=== PATIENT | male | born 1960 | race Caucasian/White ===

== ENCOUNTER → 2018-08-02 | Outpatient (CLI) | payer OTHER ==
[~2018-08-02] MED LIST: ADVAIR 250-501 EACH INH; ALBUTEROL2.5 MG/0.1 INH; ALLEGRA180 MG PO; GLUCOSAMINE-CH1 EA33 PO; MULTIVITAMINS PO; PROTONIX40 M2 PO; SIMVASTATIN40 MG PO; SYNTHROID200 MCG PO
--- NOTE | ~2018-08-02 | PFR/MVV ---
[facility] [place] [address] PULMONARY FUNCTION MVV/REPORT Name: CARLY GUZMAN Room #: [facility] Bhumika.#: [id number] Admission: 08/02/18 Attend Phys: Physician not on staff Discharge: Date of : 60 Report #: [id number] THIS REPORT FOR: //name// Jovita BAZZI FOR: AGE: 58 SEX/RACE: M/C >> SPIROMETRY: (BTPS) Height: 70 in cm Weight: 210 lbs kg Exam Date: 08/02/18 PRE-RX POST-RX PRED BEST %PRED BEST %PRED %CHG FVC LITERS . 4.51 . 4.43 . 98 . 4.43 . 98 . 0 FEV1 LITERS . 3.63 . 2.97 . 82 . 3.09 . 85 . 4 FEV1/FVC % . 80 . 67 . 84 . 70 . 87 . 4 PCD88-01% L/Sec . 3.68 . 1.33 . 36 . 1.53 . 42 . 15 PEF L/SEC . 8.69 . 9.38 . 108 . 10.25 . 118 . 9 FEF50/FIF50 UNITLESS . <1.00 . 0.36 . . 0.50 . . 40 MVV L/Min . 143 . 81 . 57 f 1/Min . . 90 . >> LUNG VOLUMES: (BTPS) PRE-RX POST-RX PRED AVG %PRED AVG %PRED %CHG VC Liters . 4.51 . 4.43 . 98 . . . TLC Liters . 6.69 . 6.23 . 93 . . . RV Liters . 2.34 . 1.80 . 77 . . . RV/TLC % . 37 . 29 . 79 . . . FRC PL Liters . 3.49 . 2.10 . 60 . . . FRC N2 Liters . 3.49 . . . . . ERV Liters . . 0.30 . . . . IC Liters . . 3.34 . . . . >> DIFFUSION: DLCO ml/Min/mmHg . 26.1 . 23.2 . 89 . . . DL Azul ml/Min/mmHg . 26.1 . 23.2 . 89 . . . DLCO/VA ml/Min/mmHg . 3.89 . 4.85 . 125 . . . VA Liters . . 4.79 . . . . [facility] [address] [place] [address] PULMONARY FUNCTION MVV/REPORT Name: MEGANCARLY T Room #: [facility] Jaz#: [id number] Admission: 08/02/18 Attend Phys: Physician not on staff Discharge: Date of : 60 Report #: [id number] COMMENTS: COMMENTS: >> RESISTANCE: PRE-RX PRED AVG %PRED Raw Total cmH20/L/Sec . . 2.67 . Raw Insp cmH20/L/Sec . . 2.21 . Raw Exp cmH20/L/Sec . . 3.23 . Raw cmH20/L/Sec . 1.29 . 1.72 . 132 Gaw L/Sec/cmH20 . 0.837 . 0.583 . 70 sRaw cmH20 Sec . 4.52 . 5.15 . 114 sGaw l/cmH20 Sec . 0.221 . 0.194 . 88 Vtq Liters . . 3.00 . # = OUTSIDE 95% CONFIDENCE INTERVAL CALIBRATION: PRED: 3.00 ACTUAL: EXP 3.01 INSP 3.02 [facility]-[id number] [facility]-[place]-05 [id number] >> INTERPRETATION/IMPRESSION: CC: Martín Hutchison MD [facility] Physician staff DATE OF SERVICE: 08/02/2018 PULMONARY FUNCTION TEST: Spirometry revealed mild airflow obstruction. There was no significant bronchodilator response. Lung volumes are normal. Diffusion capacity is normal. Flow volume loop is consistent with mild airflow obstruction. IMPRESSION: Mild obstructive ventilatory defect. <ELECTRONICALLY SIGNED> By: Ja Hunt MD 08/04/18 1634 Ja Hunt MD /nt
== END ==
LOC: PUL 09:57
DX: J63.2 Berylliosis (principal)

== ENCOUNTER → 2020-12-24 | Outpatient (CLI) | payer BC | LOC: SJCVCIMAG 07:37 | PROVIDERS: ATTEND Internal Medicine | DX: I08.2 Rheumatic disorders of both aortic and tricuspid valves (principal); I11.9 Hypertensive heart disease without heart failure; R07.89 Other chest pain; I71.2 Thoracic aortic aneurysm, without rupture; J45.909 Unspecified asthma, uncomplicated; R06.00 Dyspnea, unspecified; K21.9 Gastro-esophageal reflux disease without esophagitis; E03.9 Hypothyroidism, unspecified; G47.33 Obstructive sleep apnea (adult) (pediatric); F41.9 Anxiety disorder, unspecified; Z88.5 Allergy status to narcotic agent; Z87.891 Personal history of nicotine dependence; Z72.89 Other problems related to lifestyle; Z79.899 Other long term (current) drug therapy ==

== ENCOUNTER → 2021-07-06 | Outpatient (CLI) | payer BC | LOC: SJCVCIMAG 08:44 | PROVIDERS: ATTEND Internal Medicine | DX: I51.7 Cardiomegaly (principal); I72.8 Aneurysm of other specified arteries ==

== ENCOUNTER → 2021-09-17 | Outpatient (CLI) | payer OTHER | LOC: PUL 09:04 | DX: R06.02 Shortness of breath (principal); J63.2 Berylliosis; Z20.822 Contact with and (suspected) exposure to COVID-19 ==

== ENCOUNTER → 2021-11-16 | Outpatient (CLI) | payer OTHER | LOC: CAT 09:18 | PROVIDERS: ATTEND Internal Medicine | DX: Z13.6 Encounter for screening for cardiovascular disorders (principal); I25.10 Atherosclerotic heart disease of native coronary artery without angina pectoris; E78.00 Pure hypercholesterolemia, unspecified ==